=== PATIENT | female | born 1970 | race Caucasian/White ===

== ENCOUNTER → 2017-11-12 | Outpatient (CLI) | payer BC | END | disposition home or self-care (01) | LOC: C.PAPS 09:35 | PROVIDERS: ATTEND Obstetrics & Gynecology | DX: Z01.419 Encounter for gynecological examination (general) (routine) without abnormal findings (principal) ==

== ENCOUNTER → 2018-01-30 | Outpatient (CLI) | payer OTHER ==
--- NOTE | 2018-01-30 13:55 | MAMMOGRAPHY REPORT ---
BILATERAL DIGITAL SCREENING MAMMOGRAM TOMOSYNTHESIS WITH CAD: 01/30/2018 CLINICAL HISTORY: Routine screening. TECHNIQUE: Breast tomosynthesis in addition to standard 2D mammography was performed. Current study was also evaluated with a Computer Aided Detection (CAD) system. COMPARISON: Comparison is made to exams dated: 09/17/2016 mammogram, 05/18/2015 mammogram, 03/16/2014 ma mmogram, 01/22/2013 mammogram, 01/09/2012 mammogram, and 02/03/2013 mammogram - [facility]. BREAST COMPOSITION: The tissue of both breasts is heterogeneously dense, which may obscure small mas ses. FINDINGS: No suspicious masses, calcifications, or areas of architectural distortion are noted in ei ther breast. There has been no significant interval change compared to prior exams. Ovoid asymmetry in the left superior posterior breast on the MLO view is stable dating back to at least the 2012 and 2011 exams, and is considered benign given long-term stability. IMPRESSION: ACR BI-RADS CATEGORY 2: BENIGN There is no mammographic evidence of malignancy. A 1 year screening mammogram is recommended. The pa tient will receive written notification of the results. Approximately 10% of breast cancers are not detected with mammography. A negative mammographic report should not delay biopsy if a clinically suggestive mass is present. Ramya Adan M.D. ah/:01/30/2018 08:00:20 Physician Executive: Charbel MCCRARY)(Levi), [facility] letter sent: Normal 1/2 BI-RADS Code: ACR BI-RADS Category 2: Benign
== END | disposition home or self-care (01) ==
LOC: C.MAMM 07:40
PROVIDERS: ATTEND Obstetrics & Gynecology
DX: Z12.31 Encounter for screening mammogram for malignant neoplasm of breast (principal)